=== PATIENT | female | born 1965 | race Hispanic/Latino ===

== ENCOUNTER 2018-07-15 08:43 | Outpatient (CLI) | payer OTHER | END 2018-07-15 22:43 | disposition home or self-care (01) | LOC: RAD 08:43 | DX: M47.817 Spondylosis without myelopathy or radiculopathy, lumbosacral region (principal) ==

== ENCOUNTER 2018-07-31 11:13 | Day surgery (SDC) | payer OTHER | END 2018-07-31 14:00 | disposition home or self-care (01) | LOC: OR 11:13 | PROC: 3E0T3BZ Introduction of Anesthetic Agent into Peripheral Nerves and Plexi, Percutaneous Approach (ICD-10-PCS; principal; 2018-07-31) | PROC: 3E0T33Z Introduction of Anti-inflammatory into Peripheral Nerves and Plexi, Percutaneous Approach (ICD-10-PCS; 2018-07-31) | PROC: BR16YZZ Fluoroscopy of Lumbar Facet Joint(s) using Other Contrast (ICD-10-PCS; 2018-07-31) | DX: M47.817 Spondylosis without myelopathy or radiculopathy, lumbosacral region (principal) | CPT/HCPCS: J1100; J2001 ==

== ENCOUNTER 2018-09-04 09:28 | Day surgery (SDC) | payer OTHER ==
[~2018-09-04] VITALS: Ht 152.4 cm; Wt 68.9 kg
== END 2018-09-04 10:51 | disposition home or self-care (01) ==
LOC: OR 09:28
PROC: 3E0T3BZ Introduction of Anesthetic Agent into Peripheral Nerves and Plexi, Percutaneous Approach (ICD-10-PCS; principal; 2018-09-04)
PROC: 3E0T33Z Introduction of Anti-inflammatory into Peripheral Nerves and Plexi, Percutaneous Approach (ICD-10-PCS; 2018-09-04)
PROC: BR16YZZ Fluoroscopy of Lumbar Facet Joint(s) using Other Contrast (ICD-10-PCS; 2018-09-04)
DX: M47.817 Spondylosis without myelopathy or radiculopathy, lumbosacral region (principal)
CPT/HCPCS: J1100; J2001

== ENCOUNTER → 2018-10-22 | Day surgery (SDC) | payer OTHER | LOC: OR 10-08 02:00 | PROC: 3E0T3TZ Introduction of Destructive Agent into Peripheral Nerves and Plexi, Percutaneous Approach (ICD-10-PCS; principal; 2018-10-22) | PROC: BR16YZZ Fluoroscopy of Lumbar Facet Joint(s) using Other Contrast (ICD-10-PCS; 2018-10-22) | DX: M47.817 Spondylosis without myelopathy or radiculopathy, lumbosacral region (principal) | CPT/HCPCS: J2001 ==

== ENCOUNTER 2018-11-12 07:44 | Day surgery (SDC) | payer OTHER ==
[~2018-11-12] VITALS: Ht 30.5 cm; Wt 0.5 kg
== END 2018-11-12 09:20 | disposition home or self-care (01) ==
LOC: OR 07:44
PROC: 3E0T3TZ Introduction of Destructive Agent into Peripheral Nerves and Plexi, Percutaneous Approach (ICD-10-PCS; principal; 2018-11-12)
PROC: BR16YZZ Fluoroscopy of Lumbar Facet Joint(s) using Other Contrast (ICD-10-PCS; 2018-11-12)
DX: M47.817 Spondylosis without myelopathy or radiculopathy, lumbosacral region (principal)
CPT/HCPCS: J2001